=== PATIENT | male | born 1980 | race Caucasian/White ===

== ENCOUNTER 2021-12-06 10:27 | Outpatient (CLI) | payer OTHER ==
[~2021-12-06] VITALS: Ht 177.8 cm; Wt 97.5 kg
[~2021-12-06 10:27] MED LIST: ESOM20CA32 PO; PEDI1TAB46 PO
[2021-12-12] MEDS ORDERED: PANT40TA2 PO (10:47)
== END 2021-12-06 12:31 | disposition home or self-care (01) ==
LOC: PREOP 10:27
PROVIDERS: ATTEND Surgery
DX: Z01.818 Encounter for other preprocedural examination (principal)

== ENCOUNTER 2021-12-12 10:08 | Day surgery (SDC) | payer OTHER ==
[~2021-12-12] VITALS: Ht 177.8 cm; Wt 97.5 kg
[2021-12-12] MEDS ORDERED: LACTATED RINGERS 1,000 ML IV STA (10:14)
[2021-12-12] MEDS ORDERED: LIDOCAINE JELLY 2% 6 ML SYRINGE MM PRN (10:15)
[2021-12-12] MEDS ORDERED: HURRICAINE EXT TUBE (BENZOCAINE) XX PRN (10:15)
[2021-12-12 10:30] VITALS: BP 114/71
--- NOTE | 2021-12-12 10:46 | Progress Note-Pre Operative ---
Pre-Operative Progress Note H&P Reviewed The H&P was reviewed, patient examined and no changes noted. Date Seen by Provider: December 12, 2021 Time Seen by Provider: 10:00 Date H&P Reviewed: December 12, 2021 Time H&P Reviewed: 10:00 Pre-Operative Diagnosis: dysphagia/GERD ANDERSON MURRELL MD December 12, 2021 10:46
[2021-12-12] MEDS ORDERED: PANT40TA2 PO (10:47)
--- NOTE | 2021-12-12 10:47 | Discharge Inst-Surgical ---
D/C Lap Instructions-KIDO New, Converted, or Re-Newed RX: RX on Chart Follow Up Activity as tolerated High Fiber Diet 25g or more per day Avoid Alcohol, Caffeine, Spicy [place] and Acid foods. Drink 64 fluid oz or more of fluids per day. Symptoms to Report: Fever over 101 degree F, Nausea/Vomiting If any problems/questions: Contact your physician or go to Emergency Room ANDERSON MURRELL MD December 12, 2021 10:47
[2021-12-12] MEDS ORDERED: MIDAZOLAM 2 MG/2 ML (VERSED) VIAL ONE (12:06)
[2021-12-12] MEDS ORDERED: proPOfol 200 MG/20 ML (DIPRIVAN) VIAL IV ONE (12:06)
[2021-12-12] MEDS ORDERED: LACTATED RINGERS 1,000 ML IV ONE (12:20)
[2021-12-12 12:48] VITALS: BP 115/76
--- NOTE | 2021-12-12 13:16 | Progress Note-Post Operative ---
Post-Operative Progess Note Surgeon (s)/Cupola Operator (s) Surgeon ANDERSON MURRELL MD Cupola Operator: none Pre-Operative Diagnosis dysphagia/GERD Post-Operative Diagnosis reflux esophagitis(grade C), mild dist esoph stricture, small HH(2cm), moderate gastritis. Procedure & Operative Findings Date of Procedure 12/12/21 Procedure Performed/Findings EGD with bx and balloon dilatation. Anesthesia Type mac Estimated Blood Loss Estimated blood loss (mL): minimal Specimens/Packing Specimens Removed ge jxn, antrum ANDERSON MURRELL MD December 12, 2021 13:16
--- NOTE | 2021-12-12 13:39 | Anesthesia-General Post-Op ---
MAC Patient Condition Mental Status/LOC: Same as Preop Cardiovascular: Satisfactory Nausea/Vomiting: Absent Respiratory: Satisfactory Pain: Controlled Complications: Absent Post Op Complications Complications None Follow Up Care/Instructions Patient Instructions None needed. Anesthesiology Discharge Order Discharge Order Patient is doing well, no complaints, stable vital signs, no apparent adverse anesthesia problems. No complications reported per nursing. MARCELO YUN CRNA December 12, 2021 13:39
--- NOTE | 2021-12-12 20:08 | OPERATIVE REPORT ---
DATE OF SERVICE: 12/12/2021 ATTENDING PRIMARY CARE PHYSICIAN: [facility]. PREOPERATIVE DIAGNOSES: Gastroesophageal reflux disease and dysphagia. POSTOPERATIVE DIAGNOSES: Reflux esophagitis [place] grade C, distal esophageal stricture, small hiatal hernia 2 cm in size, moderate gastritis. No distal obstructions. PROCEDURE: EGD with biopsy and balloon dilatation. SURGEON: Anderson Murrell MD ANESTHESIA: Monitored anesthesia care. ESTIMATED BLOOD LOSS: Minimal. FINDINGS: Reflux esophagitis [place] grade C, distal esophageal stricture, small hiatal hernia 2 cm in size, moderate gastritis. No distal obstructions. DISPOSITION: The patient tolerated the procedure well. INDICATIONS: The patient is a 41-year-old male known to us. He was seen in 2017 for hemorrhoids, which were treated conservatively with a high fiber diet. He was also found to have an anal fissure again treated medically. He reports that he has had issues with gastroesophageal reflux disease and this has progressed to dysphagia for specific types of foods. He does have risk factors including chewing tobacco as well as alcohol consumption. DESCRIPTION OF PROCEDURE: The patient was brought to the endoscopy suite, laid in the left lateral decubitus position. After adequate IV pain and sedative medications and monitored anesthesia care, the mouthpiece was applied. The endoscope was placed in the mouth, visualizing the pharynx and hypopharyngeal region. Vocal cords, epiglottis and vallecula identified and appeared to be normal. The endoscope was then gently intubated at esophageal opening and esophagus insufflated. The endoscope was then advanced through the first, second and third portion of esophagus at the level of the GE junction, a reflux esophagitis [place] grade C identified with a distal esophageal stricture. A biopsy was taken with forceps with visualization of good hemostasis. The endoscope was then advanced into the stomach and endoscope retroflexed, visualizing a small hiatal hernia approximately 2 cm in size. The stricture was also identified on this view. There was a moderate severity gastritis. No formal ulcerations, polyps, or any neoplasms and a biopsy was taken of the antrum to rule out H. pylori with visualization of good hemostasis. Endoscope was then advanced to the pylorus and the first and second portion of the duodenum, which appeared normal with no distal obstructions. The balloon was then placed in the stomach and pulled back to the area of the stricture. The balloon was then insufflated in a graded stepwise fashion from 2, 4, then eventually 6 atmospheres of pressure and moderate resistance, 20 mm in luminal diameter and left this in place for approximately 60 seconds. The balloon was then desufflated and removed with visualization of good hemostasis as well as no leaking ducts of [place]. The endoscope was then withdrawn with no bleeding or mucosal tears identified. The endoscope was then slowly withdrawn while taking a second look and suctioning of residual air with no additional findings. The patient tolerated the procedure well. We will recommend the necessary lifestyle and dietary accommodation including cessation of chewing tobacco as well as alcohol. He also needs to avoid caffeinated beverages, spicy, greasy and acidic foods and take in small and more frequent meals and avoidance of eating at night. We will also start him on Protonix 40 mg daily. If he has recurrent dysphagia, we will have him followup for repeat dilatation. Job ID: [id number] DocumentID: [id number] Dictated Date: 12/12/2021 12:47:25 Management Expert Date: 12/12/2021 20:07:41 Dictated By: ANDERSON MURRELL MD
== END 2021-12-12 13:09 | disposition home or self-care (01) ==
LOC: ENDO 10:08
PROVIDERS: ATTEND Surgery
DX: K21.00 Gastro-esophageal reflux disease with esophagitis, without bleeding (principal); K22.2 Esophageal obstruction; K44.9 Diaphragmatic hernia without obstruction or gangrene; K29.70 Gastritis, unspecified, without bleeding; F17.220 Nicotine dependence, chewing tobacco, uncomplicated; K60.2 Anal fissure, unspecified
CPT/HCPCS: 88305

== ENCOUNTER → 2021-12-28 | Outpatient (CLI) | payer OTHER ==
[~2021-12-28] MED LIST changes: +PANT40TA2 PO
--- NOTE | 2021-12-28 09:14 | Diagnostic Imaging Report ---
PROCEDURE: US Gallbladder. TECHNIQUE: Multiple real-time grayscale images were obtained over the right upper quadrant in various projections. INDICATION: Right upper quadrant pain. FINDINGS: Liver, gallbladder, bile ducts appeared sonographically normal with patent normal directional portal venous flow. Hepatic veins appeared patent. Aorta nonaneurysmal. The cava appeared normal. The unobstructed right kidney normal in size, cortical thickness and echotexture. No biliary calculus or ductal dilatation. Pancreas was predominantly obscured by gas. No ascites. No fluid collection. IMPRESSION: Normal right upper quadrant ultrasound. Dictated by: Dictated on workstation # [id number]
== END ==
LOC: RAD 07:43
PROVIDERS: ATTEND Surgery
DX: R10.11 Right upper quadrant pain (principal)
CPT/HCPCS: 76705

== ENCOUNTER → 2022-02-04 | Outpatient (CLI) | payer OTHER ==
[~2022-02-04] MED LIST changes: +CATHETER FLUSH 10 ML SYR IVP PRN
--- NOTE | 2022-02-04 15:31 | Diagnostic Imaging Report ---
INDICATION: Right upper quadrant pain. 5.18 mCi tech 99M Choletec was given IV. FINDINGS: After injection there is prompt uptake of isotope into the liver. Gallbladder visualizes in a normal fashion. There is free flow of isotope through the bile duct into the small bowel. One hour into the exam, Ensure was given for fatty stimulation. 60 minute images post fatty meal shows ejection fraction of 65%. IMPRESSION: Normal hepatobiliary study with good visualization of the gallbladder and normal ejection fraction. Dictated by: Dictated on workstation # [id number]
== END ==
LOC: CARD 12:45
PROVIDERS: ATTEND Surgery
DX: R10.11 Right upper quadrant pain (principal)
CPT/HCPCS: 78227; A9537

== ENCOUNTER 2023-05-30 10:34 | Outpatient (CLI) | payer OTHER ==
[~2023-05-30] VITALS: Ht 177.8 cm; Wt 90.3 kg
[~2023-05-30 10:34] MED LIST changes: -CATHETER FLUSH 10 ML SYR IVP PRN
== END 2023-05-30 11:02 | disposition home or self-care (01) ==
LOC: PREOP 10:34
PROVIDERS: ATTEND Surgery
DX: Z01.818 Encounter for other preprocedural examination (principal)

== ENCOUNTER 2023-06-04 13:00 | Day surgery (SDC) | payer OTHER ==
[~2023-06-04] VITALS: Ht 177.8 cm; Wt 90.3 kg
[2023-06-04] MEDS ORDERED: LACTATED RINGERS 1,000 ML 1,000 ML IV STA (13:04)
--- NOTE | 2023-06-04 13:09 | Progress Note-Pre Operative ---
Pre-Operative Progress Note Date of Available H&P: Jun 04, 2023 Date H&P Reviewed: Jun 04, 2023 Time H&P Reviewed: 13:00 History & Physical: No changes noted Pre-Operative Diagnosis: dysphagia, GERD, hx colon polyp with dysplasia ANDERSON MURRELL MD Jun 04, 2023 13:09
[2023-06-04] MEDS ORDERED: PANT40TA2 PO (13:10)
--- NOTE | 2023-06-04 13:10 | Discharge Inst-Surgical ---
D/C Lap Instructions-HANDY Follow Up Activity as tolerated High Fiber Diet 25g or more per day Avoid Alcohol, Caffeine, Spicy [place] and Acid foods. Drink 64 fluid oz or more of fluids per day. Symptoms to Report: Fever over 101 degree F, Nausea/Vomiting If any problems/questions: Contact your physician or go to Emergency Room ANDERSON MURRELL MD Jun 04, 2023 13:10
[2023-06-04] MEDS ORDERED: ONDANSETRON 4 MG ORAL DISSOLVE TABLET PO PRN (13:15)
[2023-06-04] MEDS ORDERED: ONDANSETRON INJECTION 4 MG/2 ML (SDV) IVP PRN (13:15)
[2023-06-04] MEDS ORDERED: HURRICAINE EXT TUBE (BENZOCAINE) XX PRN (13:15)
[2023-06-04] MEDS ORDERED: LIDOCAINE JELLY 2% 6 ML SYRINGE MM PRN (13:15)
[2023-06-04 13:31] VITALS: BP 97/75
[2023-06-04] MEDS ORDERED: LIDOCAINE JELLY 2% 6 ML SYRINGE ONE (13:53)
[2023-06-04 15:05] VITALS: BP 113/64
[2023-06-04 15:10] VITALS: BP 114/70
--- NOTE | 2023-06-04 15:37 | Progress Note-Post Operative ---
Post-Operative Progess Note Surgeon (s)/Services Rep (s) Surgeon ANDERSON MURRELL MD Services Rep: none Pre-Operative Diagnosis dysphagia, GERD, hx colon polyp with dysplasia Post-Operative Diagnosis reflux esophagitis(grade B), mild dist esoph stricture, small-moderate HH(2.5cm), moderate gastritis. chronic stage 2 ext and int hemorrhoids. Procedure & Operative Findings Date of Procedure 06/04/23 Procedure Performed/Findings EGD with bx and balloon dilatation. Colonoscopy. Anesthesia Type mac Estimated Blood Loss Estimated blood loss (mL): minimal Specimens/Packing Specimens Removed ge jxn, antrum ANDERSON MURRELL MD Jun 04, 2023 15:37
[2023-06-04 15:40] VITALS: BP 114/70
--- NOTE | 2023-06-05 01:01 | OPERATIVE REPORT ---
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 POSTOPERATIVE DIAGNOSES: Reflux esophagitis, [place] grade B with a mild distal esophageal stricture, small to moderate size hiatal hernia approximately 2.5 cm in size, moderate gastritis, no distal obstructions. Chronic stage II external and internal hemorrhoids. Later, he did develop an anal fissure and again we treated this medically. On 12/12/2021, we had seen him for reflux as well as dysphagia and underwent EGD with balloon dilatation. On 07/2022 he underwent a colonoscopy and snare polypectomy of a polyp of the rectosigmoid junction, 1 cm in size, which was pedunculated. This was found to be a tubular adenoma with a very small foci of high-grade dysplasia, however, negative for malignancy. Again, he has redeveloped gastroesophageal reflux type of symptoms as well as dysphagia for some types of foods. He does not report any diarrhea, nor constipation as well as no red blood per rectum, nor any dark tarry stools. He also does not report any family history of colon cancer. DESCRIPTION OF PROCEDURE: The patient was brought to the endoscopy suite and laid in the left lateral decubitus position. After adequate IV pain and sedative medications and monitored anesthesia care, the mouthpiece was applied. The endoscope was placed in the mouth, visualized the pharynx and hypopharyngeal region. Vocal cords, epiglottis and vallecula identified and appeared to be normal. Endoscope was then gently intubated into the esophageal opening and esophagus insufflated. The endoscope was then advanced into the first, second, third portions of esophagus at the level of the GE junction, reflux esophagitis, [place] grade B identified with a mild distal esophageal stricture. A biopsy was taken with forceps with visualization of good hemostasis. The endoscope was then advanced into the stomach and endoscope retroflexed visualizing a small to moderate size hiatal hernia approximately 2 cm in size. There was a moderate severity gastritis more towards the stomach antrum, no formal ulcerations, polyps or any neoplasms. A biopsy was taken of the antrum to rule out H. pylori with visualization of good hemostasis. Endoscope was then advanced through the pylorus and through the first and second portions of the duodenum. No ulcers or distal obstructions identified. The endoscope was then withdrawn to the are of the stricture. The balloon was then insufflated in stepwise graded fashion from 2,4 then eventually 5 atmospheres of pressure with 60 seconds in between. Once we hit 5 atmospheres of pressure we encountered moderated resistance or approximately 19mm in luminal diameter and then left this in place for 120 seconds. The balloon was then desufflated and removed with visualization of good hemostasis as well as no mucosal tears. The endoscope was then slowly withdrawn while taking a second look and suctioning of residual air with no additional findings. The patient tolerated the procedure well. A digital rectal examination was performed which revealed chronic stage II, external and internal hemorrhoids, not actively edematous nor inflamed and no bleeding. Normal sphincter tone was felt and there were no palpable masses. Prostate gland was palpable and appeared normal. The endoscope was then intubated into the anus and the rectum gently insufflated. The endoscope was then advanced through the valves of [place] of the rectum with no polyps or any neoplasms identified. There was no recurrent polyps of the rectosigmoid junction. The endoscope was then advanced through the sigmoid colon where no diverticulosis identified. We then proceeded through the remainder of the descending, transverse and ascending colon to the cecum, which were normal. Endoscope was then slowly withdrawn while taking a second look and suctioning of residual air with no additional findings. The patient tolerated the procedure well. We will recommend the necessary lifestyle and dietary accommodation including small more frequent meals, avoidance of eating at night as well as head elevation while lying supine. He also needs to avoid caffeinated beverages, spicy, greasy and acidic foods. We will also start him on Protonix 40 mg daily. If he does have persistent or worsening reflux or reoccurrence of dysphagia, we will have him follow up for repeat dilatation We will also recommend a high-fiber diet with a fiber supplement, which should equal or exceed 30 grams daily as well as significant amounts of water to promote soft consistency stools on a daily basis. Due to the history of the large polyp with high-grade dysplasia and no polyps identified on this colonoscopy, we will recommend a followup colonoscopy in 3 years. Job ID: [id number] DocumentID: [id number] Dictated Date: 06/04/2023 15:10:35 Box Lining Machine Feeder Date: 06/05/2023 00:59:00 Dictated By: ANDERSON MURRELL MD [facility]
== END 2023-06-04 15:40 | disposition home or self-care (01) ==
LOC: ENDO 13:00
PROVIDERS: ATTEND Surgery
DX: K21.00 Gastro-esophageal reflux disease with esophagitis, without bleeding (principal); K22.2 Esophageal obstruction; K44.9 Diaphragmatic hernia without obstruction or gangrene; K29.70 Gastritis, unspecified, without bleeding; K64.4 Residual hemorrhoidal skin tags; K64.1 Second degree hemorrhoids
CPT/HCPCS: 88305